=== PATIENT | male | born 1945 | race Caucasian/White ===

== ENCOUNTER → 2017-07-17 11:35 | Outpatient (CLI) | payer OTHER, SELFPAY ==
[2017-07-17 14:30] LABS: Absolute Lymphocyte Count 0.59 X10^3/ul (0.83-4.51); Absolute Neutrophil Count 3.4 X10^3/uL (2.0-7.7); Basophil# 0.05 X10^3/uL; Eosinophil# 0.33 X10^3/uL; Eosinophils% 6.6 % (0-5); Hematocrit 43.1 % (40-54); Hemoglobin 14.9 g/dl (13.0-16.5); Lymphocyte # 0.59 X10^3/ul (4.0); Lymphocyte % 11.8 % (19-41); Mean Corp Hgb Conc 34.6 g/gl (32-36); Mean Corpuscular Hgb 32.6 pg (27.0-32.0); Mean Corpuscular Volume 94.3 fL (80-94); Mean Platelet Vol. 9.1 fl (6.2-12.0); Monocyte# 0.61 X10^3/uL; Monocyte% 12.2 % (0-10); Neutrophil # 3.42 X10^3/uL (2.7-7.7); Platelet Count 168 K/mm3 (150-450); RBC Distribution Width CV 12.3 % (11.6-14.6); RBC Distribution Width SD 41.3 fl (35.1-43.9); Red Blood Count 4.57 M/mm3 (4.6-6.2)
[2017-07-17 14:37] LABS: Differential Indicated SCAN CRITERIA MET; POSITIVE COUNT NO; POSITIVE DIFFERENTIAL YES; POSITIVE MORPHOLOGY NO
[2017-07-17 15:24] LABS: Differential Comment SCANNED; Platelet Estimate ADEQUATE (ADEQ)
== END ==
PROVIDERS: PCP Family Medicine; Visit Provider Radiology Radiation Oncology
DX: C61 Malignant neoplasm of prostate (principal)
CPT/HCPCS: 36415; 85025

== ENCOUNTER → 2017-07-25 09:12 | Outpatient (CLI) | payer OTHER, SELFPAY ==
[2017-07-23 08:34] VITALS: BP 132/75; BMI 24.0
--- NOTE | 2017-07-25 09:21 | RAD_ITS ---
STUDY: AIR-CONTRAST UPPER GI SERIES. REASON FOR EXAM: Male, 72 years old. Dysphagia. FLUOROSCOPY TIME (if supplied): (0:01) minutes/seconds TECHNIQUE: The patient ingested barium. Multiple images of the esophagus stomach and duodenum were obtained. COMPARISON: None. FINDINGS: There is evidence of a mild degree of circumferential narrowing of the distal esophagus at the gastroesophageal junction. No evidence of gastroesophageal reflux. The patient ingested a 12 mm tablet of barium. The tablet is trapped at the gastroesophageal junction. Endoscopic correlation is recommended. The stomach and duodenum are unremarkable. There is no evidence of ulceration. No mass lesion is seen. IMPRESSION: Mild narrowing of the distal esophagus at the gastroesophageal junction with trapping of the 12 mm tablet of barium. Endoscopic correlation is recommended. Electronically Signed: Mason Coon MD at 11:16 EST Tel [phone], Service support , STUDY: X-RAY - ESOPHAGUS (BARIUM SWALLOW) WITH FLUOROSCOPY REASON FOR EXAM: Male, 72 years old. Dysphagia for solids. TECHNIQUE: 10 view(s) of the esophagus were obtained following swallowing of barium. FLUOROSCOPY TIME (if supplied): (0:01) minutes/seconds COMPARISON: None. FINDINGS: There is no demonstrated esophageal foreign body. Mild circumferential narrowing of the distal esophagus at the gastroesophageal junction. The patient ingested a 12 mm tablet of barium. The tablet is trapped at the gastroesophageal junction. Endoscopic correlation is recommended. Normal visualized aortic arch and descending thoracic aorta. Normal visualized pulmonary parenchyma. There are diffuse degenerative changes of the visualized thoracic spine. RAD/Upper GI w/BA Swallow IMPRESSION: Narrowing of the distal esophagus at the gastric esophageal junction with trapping of the 12 mm tablet of barium. Endoscopic correlation is recommended. Electronically Signed: Mason Coon MD at 11:17 EST Tel [phone], Service support ,
== END ==
PROVIDERS: Family Provider Family Medicine; PCP Family Medicine; Visit Provider Surgery
DX: R13.10 Dysphagia, unspecified (principal)
CPT/HCPCS: 74246

== ENCOUNTER 2017-07-30 08:50 | Day surgery (SDC) | payer MEDICARE, SELFPAY ==
[2017-07-23 08:34] VITALS: BP 132/75; BMI 24.0
[2017-07-30] VITALS (8 sets, daily range): BP systolic 81–121; BP diastolic 47–71; PULSE 59–71; RESP 16–18; TEMP 35.7–36.4; O2SAT 95–99; BMI 24.0
--- NOTE | 2017-07-30 | IMM_PTH ---
PATIENT: MARIA A CLEMENT LOC: EN U#:[id number] AGE/SX: 72/M ROOM: RE07/30/[address]: Dr. Hoang Wilcxo MD : 1945 BED: DIS: 07/30/2017 SPEC #: [id number] RECD: 07/31/17 13:34 STATUS: CODY REDenae #: [id number] CAL: 07/30/17 00:[address]: Hoang Wilcox DEPT: IMMUNOHISTOCHEMISTRY RECD BY: Brittany Hdz ENTERED: 07/31/17 13:34 SP TYPE: IMMUNO OTHR DR: Dr. Joaquin Caraballo MD Tissues: B - Stomach, NOS Procedures: H Pylori (initial) PHYSICIAN & INSTITUTION [place] [id number] SPECIMEN INFORMATION: Tissue Source: B ? Antral biopsy Clinical Info: Dysphagia Specimen Number: [id number] CPT code: 53026 METHODOLOGY: Deparaffinized sections of prefer/formalin-fixed tissue or PAP/DQ stained slides are incubated with monoclonal/polyclonal antibodies/oligonucleotide probes. Localization is made via biotin free immunoperoxidase method. Appropriate controls are performed and reacted as expected. Results on target cell population are indicated in the following table: RESULTS: ANTIBODY / CLONE RESULT Block B H Pylori (polyclonal) negative These tests were developed and their performance characteristics determined by [facility]. They may not have been cleared or approved by the [place]. Food and Drug Administration. The FDA has determined that such clearance or approval is not necessary. INTERPRETATION: B. Antral biopsy: Negative for Helicobacter pylori organisms. AM:jorge 08/01/17
--- NOTE | 2017-07-30 10:55 | EGD_PTH ---
PATIENT: MARIA A CLEMENT LOC: EN U#:[id number] AGE/SX: 72/M ROOM: RE07/30/[address]: Dr. Hoang Wilcox MD : 1945 BED: DIS: 07/30/2017 SPEC #: [id number] RECD: 07/30/17 12:42 STATUS: CODY DARIEL #: [id number] CAL: 07/30/17 10:[address]: Hoang Wilcox DEPT: SURGICAL PATHOLOGY RECD BY: Tuan Alaniz ENTERED: 07/30/17 13:55 SP TYPE: EGD BIOPSY REMI DR: Dr. Joaquin Caraballo MD Tissues: A - Duodenum, NOS B - Gastric mucous membrane C - Esophageal mucous membrane Procedures: Surgery Specimen Level IV HEADER OPERATION: EGD PRE-OP DIAGNOSIS: Dysphagia TISSUE SUBMITTED: A ? Duodenal biopsy, B ? Antral biopsy, C ? Distal esophageal biopsy MICROSCOPIC DIAGNOSIS A. Duodenum, biopsy: No significant pathologic change. No evidence of enteritis. B. Gastric antrum, biopsy: Gastritis. C. Distal esophagus, biopsy: Focal changes of reflux. AM:jorge 07/31/17 COMMENT B. The results of immunohistochemistry for Helicobacter pylori will be reported separately ([id number]). MICROSCOPIC DESCRIPTION Slides are reviewed. B. Sections show small collections and groups of plasma cells in the mucosa. Active inflammation is not present. These findings are consistent with mild chronic gastritis. GROSS DESCRIPTION A - Received in fixative is one container labeled with the patient's name and designated duodenal biopsy. The specimen consists of one irregular fragment of light og soft tissue that measures 0.3 x 0.2 x 0.1 cm. The specimen is totally submitted in one cassette. B - Received in fixative is one container labeled with the patient's name and designated antral biopsy. The specimen consists of one irregular fragment of light og soft tissue that measures 0.5 x 0.3 x 0.1 cm. The specimen is totally submitted in one cassette. C - Received in fixative is one container labeled with the patient's name and designated distal esophagus. The specimen consists of two irregular fragments of light og soft tissue that in aggregate measure 0.3 x 0.2 x 0.1 cm. The specimen is totally submitted in one cassette. / AM:jorge 07/30/17 TC:3 CPT: 29023 x3
--- NOTE | 2017-07-30 10:55 | EGD_PTH ---
PATIENT: MARIA A CLEMENT LOC: EN U#:[id number] AGE/SX: 72/M ROOM: RE07/30/[address]: Dr. Hoang Wilcox MD : 1945 BED: DIS: 07/30/2017 SPEC #: [id number] RECD: 07/30/17 12:42 STATUS: CODY DARIEL #: [id number] CAL: 07/30/17 10:[address]: Hoang Wilcox DEPT: SURGICAL PATHOLOGY RECD BY: Tuan Alaniz ENTERED: 07/30/17 13:55 SP TYPE: EGD BIOPSY REMI DR: Dr. Joaquin Caraballo MD Tissues: A - Duodenum, NOS B - Gastric mucous membrane C - Esophageal mucous membrane Procedures: Surgery Specimen Level IV HEADER OPERATION: EGD PRE-OP DIAGNOSIS: Dysphagia TISSUE SUBMITTED: A ? Duodenal biopsy, B ? Antral biopsy, C ? Distal esophageal biopsy FROZEN SECTION DIAGNOSIS B. The results of immunohistochemistry for Helicobacter pylori will be reported separately ([id number]). MICROSCOPIC DIAGNOSIS A. Duodenum, biopsy: No significant pathologic change. No evidence of enteritis. B. Gastric antrum, biopsy: Gastritis. C. Distal esophagus, biopsy: Focal changes of reflux. AM:jorge 07/31/17 COMMENT B. Sections show small collections and groups of plasma cells in the mucosa. Active inflammation is not present. These findings are consistent with mild chronic gastritis. MICROSCOPIC DESCRIPTION Slides are reviewed. GROSS DESCRIPTION A - Received in fixative is one container labeled with the patient's name and designated duodenal biopsy. The specimen consists of one irregular fragment of light og soft tissue that measures 0.3 x 0.2 x 0.1 cm. The specimen is totally submitted in one cassette. B - Received in fixative is one container labeled with the patient's name and designated antral biopsy. The specimen consists of one irregular fragment of light og soft tissue that measures 0.5 x 0.3 x 0.1 cm. The specimen is totally submitted in one cassette. C - Received in fixative is one container labeled with the patient's name and designated distal esophagus. The specimen consists of two irregular fragments of light og soft tissue that in aggregate measure 0.3 x 0.2 x 0.1 cm. The specimen is totally submitted in one cassette. / AM:jorge 07/30/17 TC:3 CPT: 98715 x3
--- NOTE | 2017-07-30 11:12 | PCM.OPRPT ---
Problem List (1) Esophageal dysfunction Status: Acute Report of Operation Date of Procedure: 07/30/17 Pre-Operative Diagnosis: Intermittent episodes of esophageal food intermittent partial obstruction Post-Operative Diagnosis: Small hiatal hernia with minimal esophagitis. Relative narrowing of the e.g. junction. Duodenitis Surgery/Procedure Performed:: Gastroduodenoscopy with duodenal and antral and distal esophageal biopsies with 18 mm hydrostatic distal esophageal e.g. junction dilatation Description of Surgical Findings:: Timeout and informed consent was obtained. 72-year-old gent was taken to the endoscopy suite. His oropharynx anesthetized with Cetacaine. He was placed in left loud skin position. He received throughout the procedure a total of 75 mg Demerol and 3 mg of Versed. She videogastroscope was inserted into the esophageal inlet. Advanced without difficulty. Proximal mid distal esophagus unremarkable. EG junction at 40 cm. Very minimal distal esophagitis noted. There appear to be relative narrowing of the e.g. junction. Scope was advanced in the stomach which otherwise did not appear remarkable. Scope was advanced through the pylorus and the first and second portion the duodenum were inspected. There appeared to be mild inflammatory changes of the duodenum. No ulcerations. No active bleeding. Duodenal biopsy was obtained. The scope was withdrawn to stomach retroflexed the EG junction and cardia inspected. Small hiatal hernia noted. Cardia was not remarkable. The greater and lesser curvatures were not remarkable. Antral biopsy was obtained. Excess fluid and air was aspirated free. The scope was withdrawn to the distal esophagus. A slight tugging on the scope was encountered. I took a biopsy of the distal esophagus. Because of the patient's symptomatology I elected to do balloon dilatation. A hydrostatic balloon was inserted and gradually went from 3 albin to 7 albin bringing the balloon up to 18 mm of pressure. That appeared to go well. Inspection revealed a very slight superficial mucosal tear at the e.g. junction and I elected to place a hemostatic clip there. That was nicely intact. This scope was further withdrawn without additional abnormality. Impression Mild duodenitis. Small hiatal hernia. Snug EG junction seemingly treated successfully with 18 mm hydrostatic dilatation. The patient will be conservatively observed. Barium swallow demonstrated the same finding with a barium tablet hanging at the e.g. junction. The patient's improves and no further investigation were required. The patient continues to have symptoms then would consider esophageal manometry. Cc: Dr. Frederick Wilcox M.D., F.A.C.S. Type of Anesthesia:: IV Sedation
== END 2017-07-30 12:23 | disposition home or self-care (01) ==
LOC: EN 08:52 → AC 08:53
PROVIDERS: Family Provider Family Medicine; PCP Family Medicine; Visit Provider Surgery
PROC: (CPT 43239; principal; 2017-07-30 09:55)
DX: K29.80 Duodenitis without bleeding (principal); R13.10 Dysphagia, unspecified; K44.9 Diaphragmatic hernia without obstruction or gangrene; K29.70 Gastritis, unspecified, without bleeding; E78.5 Hyperlipidemia, unspecified; I10 Essential (primary) hypertension; Z85.46 Personal history of malignant neoplasm of prostate; Z80.0 Family history of malignant neoplasm of digestive organs
CPT/HCPCS: 43239; 43249; 88305; 88342; J7120

== ENCOUNTER → 2017-08-08 09:13 | Outpatient (CLI) | payer MEDICARE, SELFPAY ==
[2017-08-08 12:06] LABS: Absolute Lymphocyte Count 0.53 X10^3/ul (0.83-4.51); Basophil# 0.02 X10^3/uL; Basophil% 0.4 % (0-1); Eosinophil# 0.35 X10^3/uL; Eosinophils% 7.8 % (0-5); Hematocrit 40.7 % (40-54); Hemoglobin 13.7 g/dl (13.0-16.5); Lymphocyte # 0.53 X10^3/ul (4.0); Lymphocyte % 11.8 % (19-41); Mean Corp Hgb Conc 33.7 g/gl (32-36); Mean Corpuscular Hgb 32.3 pg (27.0-32.0); Mean Platelet Vol. 9.2 fl (6.2-12.0); Monocyte# 0.57 X10^3/uL; Monocyte% 12.7 % (0-10); Neutrophil # 2.99 X10^3/uL (2.7-7.7); Neutrophil % 66.6 % (47-70); Platelet Count 202 K/mm3 (150-450); RBC Distribution Width CV 12.8 % (11.6-14.6); RBC Distribution Width SD 43.6 fl (35.1-43.9); Red Blood Count 4.24 M/mm3 (4.6-6.2); White Blood Count 4.5 K/mm3 (4.4-11.0)
[2017-08-08 12:07] LABS: Differential Indicated SCAN CRITERIA MET; POSITIVE COUNT NO; POSITIVE DIFFERENTIAL YES; POSITIVE MORPHOLOGY NO
== END ==
PROVIDERS: Family Provider Family Medicine; PCP Family Medicine; Visit Provider Radiology Radiation Oncology
DX: C61 Malignant neoplasm of prostate (principal)
CPT/HCPCS: 36415; 85025

== ENCOUNTER → 2018-02-24 13:42 | Outpatient (CLI) | payer MEDICARE, SELFPAY ==
[2018-02-24 16:30] LABS: PSA,Total- Diagnostic < 0.01 ng/mL (0.0-4.0)
== END ==
PROVIDERS: Family Provider Family Medicine; PCP Family Medicine; Visit Provider Urology
DX: C61 Malignant neoplasm of prostate (principal)
CPT/HCPCS: 36415; 84153

== ENCOUNTER → 2018-09-01 09:21 | Outpatient (CLI) | payer MEDICARE, SELFPAY ==
[2017-07-30 09:25] VITALS: BMI 24.0
[2018-09-01 11:33] LABS: PSA,Total- Diagnostic 0.21 ng/mL (0.0-4.0)
== END ==
PROVIDERS: Family Provider Family Medicine; PCP Family Medicine; Referring Provider Urology; Visit Provider Urology
DX: C61 Malignant neoplasm of prostate (principal)
CPT/HCPCS: 36415; 84153

== ENCOUNTER → 2019-02-25 08:07 | Outpatient (CLI) | payer MEDICARE, SELFPAY ==
[2017-07-30 09:25] VITALS: BMI 24.0
[2019-02-25 12:15] LABS: Absolute Lymphocyte Count 0.76 X10^3/uL (0.83-4.51); Absolute Neutrophil Count 3.6 X10^3/uL (2.0-7.7); Basophil# 0.05 X10^3/uL; Eosinophil# 0.27 X10^3/uL; Eosinophils% 5.3 % (0-5); Hematocrit 46.1 % (40-54); Hemoglobin 15.1 g/dL (13.0-16.5); Lymphocyte # 0.76 X10^3/ul (4.0); Lymphocyte % 14.9 % (19-41); Mean Corp Hgb Conc 32.8 g/dL (32-36); Mean Corpuscular Hgb 31.7 pg (27.0-32.0); Mean Corpuscular Volume 96.8 fL (80-94); Mean Platelet Vol. 9.5 fl (6.2-12.0); Monocyte# 0.43 X10^3/uL; Monocyte% 8.4 % (0-10); NRBC Flagged by Analyzer 0 % (0-5); Neutrophil # 3.56 X10^3/uL (2.7-7.7); Platelet Count 199 K/mm3 (150-450); RBC Distribution Width CV 12.5 % (11.6-14.6); RBC Distribution Width SD 44.9 fl (35.1-43.9); Red Blood Count 4.76 M/mm3 (4.6-6.2); White Blood Count 5.1 K/mm3 (4.4-11.0)
[2019-02-25 12:54] LABS: Anion Gap 6 (5-15); BUN 21 mg/dL (7-18); BUN/Creat Ratio 21.5 RATIO (10-20); Calcium,Total 8.7 mg/dL (8.5-10.1); Chloride 108 mmol/L (98-107); Cholesterol 135 mg/dL (200); Creatinine, Serum 0.98 mg/dL (0.70-1.30); EST Glomerular Filtration Rate 79 mL/min (>60); Est Glom Filt Rate - Afr Amer 96 mL/min (>60); Glucose 105 mg/dL (74-106); High Density Lipoprotein 55 mg/dL; Sodium Level 139 mmol/L (136-145); Triglycerides 77 mg/dL; Very Low Density Lipoprotein 15 mg/dL (5-40)
== END ==
PROVIDERS: Family Provider Family Medicine; PCP Family Medicine; Visit Provider Family Medicine
DX: I10 Essential (primary) hypertension (principal); E78.5 Hyperlipidemia, unspecified
CPT/HCPCS: 36415; 80048; 80061; 84443; 85025

== ENCOUNTER → 2019-09-11 10:12 | Outpatient (CLI) | payer MEDICARE, SELFPAY ==
[2017-07-30 09:25] VITALS: BMI 24.0
[2019-09-11 12:21] LABS: Absolute Lymphocyte Count 0.72 X10^3/uL (0.83-4.51); Absolute Neutrophil Count 3.1 X10^3/uL (2.0-7.7); Basophil# 0.05 X10^3/uL; Basophil% 1.1 % (0-1); Eosinophil# 0.21 X10^3/uL; Eosinophils% 4.6 % (0-5); Hematocrit 44.9 % (40-54); Hemoglobin 15.1 g/dL (13.0-16.5); Lymphocyte # 0.72 X10^3/ul (4.0); Lymphocyte % 15.9 % (19-41); Mean Corp Hgb Conc 33.6 g/dL (32-36); Mean Corpuscular Hgb 32.8 pg (27.0-32.0); Mean Corpuscular Volume 97.4 fL (80-94); Mean Platelet Vol. 9.3 fl (6.2-12.0); Monocyte# 0.47 X10^3/uL; Monocyte% 10.4 % (0-10); NRBC Flagged by Analyzer 0 % (0-5); Neutrophil # 3.06 X10^3/uL (2.7-7.7); Neutrophil % 67.3 % (47-70); Platelet Count 193 K/mm3 (150-450); RBC Distribution Width CV 12.3 % (11.6-14.6); RBC Distribution Width SD 44.3 fl (35.1-43.9); Red Blood Count 4.61 M/mm3 (4.6-6.2); White Blood Count 4.5 K/mm3 (4.4-11.0)
[2019-09-11 12:35] LABS: ALB/GLOB Ratio 1.1 RATIO (0.9-2.4); AST(SGOT) 37 U/L (15-37); Alanine Aminotransfer ALT/SGPT 37 U/L (16-61); Albumin, Serum 3.9 g/dL (3.2-5.0); Alkaline Phosphatase 95 U/L (45-117); Anion Gap 8 (5-15); BUN 20 mg/dL (7-18); BUN/Creat Ratio 20.8 RATIO (10-20); Calcium,Total 8.7 mg/dL (8.5-10.1); Chloride 102 mmol/L (98-107); Creatinine, Serum 0.96 mg/dL (0.70-1.30); EST Glomerular Filtration Rate 81 mL/min (>60); Est Glom Filt Rate - Afr Amer 98 mL/min (>60); Globulin 3.5 g/dL (2.2-4.2); Glucose 99 mg/dL (74-106); Potassium 3.8 mmol/L (3.5-5.1); Protein, Total 7.4 g/dL (6.4-8.2); Sodium Level 138 mmol/L (136-145)
== END ==
PROVIDERS: PCP Family Medicine; Visit Provider Family Medicine
DX: I10 Essential (primary) hypertension (principal); C61 Malignant neoplasm of prostate; Z12.5 Encounter for screening for malignant neoplasm of prostate
CPT/HCPCS: 36415; 80053; 84153; 85025; G0103

== ENCOUNTER → 2022-03-19 | Outpatient (CLI) | payer MEDICARE, SELFPAY ==
[2022-03-19 10:11] LABS: Absolute Lymphocyte Count 0.84 X10^3/uL (0.83-4.51); Absolute Neutrophil Count 3.7 X10^3/uL (2.0-7.7); Basophil# 0.07 X10^3/uL; Basophil% 1.3 % (0-1); Eosinophil# 0.19 X10^3/uL; Eosinophils% 3.6 % (0-5); Hematocrit 44.9 % (40-54); Hemoglobin 15.6 g/dL (13.0-16.5); Lymphocyte # 0.84 X10^3/ul (0.83-4.51); Mean Corp Hgb Conc 34.7 g/dL (32-36); Mean Corpuscular Hgb 33.3 pg (27.0-32.0); Mean Corpuscular Volume 95.7 fL (80-94); Mean Platelet Vol. 8.9 fl (6.2-12.0); Monocyte# 0.47 X10^3/uL; NRBC Flagged by Analyzer 0 % (0-5); Neutrophil # 3.66 X10^3/uL (2.7-7.7); Neutrophil % 69.9 % (47-70); Platelet Count 216 K/mm3 (150-450); RBC Distribution Width CV 12.2 % (11.6-14.6); RBC Distribution Width SD 43.1 fl (35.1-43.9); Red Blood Count 4.69 M/mm3 (4.6-6.2); White Blood Count 5.2 K/mm3 (4.4-11.0)
[2022-03-19 11:02] LABS: ALB/GLOB Ratio 0.9 RATIO (0.9-2.4); AST(SGOT) 17 U/L (15-37); Alanine Aminotransfer ALT/SGPT 29 U/L (16-61); Albumin, Serum 3.6 g/dL (3.2-5.0); Alkaline Phosphatase 90 U/L (45-117); Anion Gap 9 (5-15); BUN 19 mg/dL (7-18); BUN/Creat Ratio 19.6 RATIO (10-20); Calcium,Total 9.1 mg/dL (8.5-10.1); Chloride 104 mmol/L (98-107); Cholesterol 136 mg/dL (200); Creatinine, Serum 0.97 mg/dL (0.70-1.30); EST Glomerular Filtration Rate 80 mL/min (>60); Est Glom Filt Rate - Afr Amer 96 mL/min (>60); Globulin 3.8 g/dL (2.2-4.2); Glucose 93 mg/dL (74-106); High Density Lipoprotein 56 mg/dL; Potassium 3.6 mmol/L (3.5-5.1); Protein, Total 7.4 g/dL (6.4-8.2); Sodium Level 140 mmol/L (136-145); Thyroid Stim Hormone (TSH) 2.01 uIU/mL (0.358-3.74); Triglycerides 68 mg/dL; Very Low Density Lipoprotein 14 mg/dL (5-40)
== END | disposition home or self-care (01) ==
LOC: MTLAB 07:05
PROVIDERS: PCP Family Medicine; Visit Provider Family Medicine
DX: I10 Essential (primary) hypertension (principal); E78.5 Hyperlipidemia, unspecified
CPT/HCPCS: 36415; 80053; 80061; 84443; 85025

== ENCOUNTER → 2022-05-21 | Outpatient (CLI) | payer MEDICARE, SELFPAY ==
[2022-05-21 15:55] LABS: PSA,Total- Diagnostic 0.24 ng/mL (0.0-4.0)
== END | disposition home or self-care (01) ==
LOC: LAB 13:49
PROVIDERS: PCP Family Medicine; Referring Provider Registered Nurse; Visit Provider Registered Nurse
DX: C61 Malignant neoplasm of prostate (principal)
CPT/HCPCS: 36415; 84153

== ENCOUNTER → 2024-04-09 | Outpatient (CLI) | payer MEDICARE, SELFPAY ==
[2024-04-09 17:49] LABS: Absolute Lymphocyte Count 0.97 X10^3/uL (0.83-4.51); Absolute Neutrophil Count 4.4 X10^3/uL (2.0-7.7); Basophil# 0.08 X10^3/uL; Basophil% 1.3 % (0-1); Eosinophils% 3.2 % (0-5); Hematocrit 44.8 % (40-54); Hemoglobin 14.8 g/dL (13.0-16.5); Lymphocyte # 0.97 X10^3/ul (0.83-4.51); Lymphocyte % 15.6 % (19-41); Mean Corpuscular Hgb 32.2 pg (27.0-32.0); Mean Corpuscular Volume 97.6 fL (80-94); Mean Platelet Vol. 9.3 fl (6.2-12.0); Monocyte# 0.57 X10^3/uL; Monocyte% 9.2 % (0-10); NRBC Flagged by Analyzer 0 % (0-5); Neutrophil # 4.36 X10^3/uL (2.7-7.7); Neutrophil % 70.2 % (47-70); Platelet Count 248 K/mm3 (150-450); RBC Distribution Width CV 12.6 % (11.6-14.6); Red Blood Count 4.59 M/mm3 (4.6-6.2); White Blood Count 6.2 K/mm3 (4.4-11.0)
[2024-04-09 18:22] LABS: ALB/GLOB Ratio 1.1 RATIO (0.9-2.4); AST(SGOT) 24 U/L (15-37); Alanine Aminotransfer ALT/SGPT 34 U/L (16-61); Albumin, Serum 3.9 g/dL (3.2-5.0); Alkaline Phosphatase 109 U/L (45-117); Anion Gap 7 (5-15); BUN 21 mg/dL (7-18); BUN/Creat Ratio 21.3 RATIO (10-20); Calcium,Total 9.2 mg/dL (8.5-10.1); Chloride 97 mmol/L (98-107); Cholesterol 131 mg/dL (200); Creatinine, Serum 0.99 mg/dL (0.70-1.30); EST Glomerular Filtration Rate 77 mL/min (>60); Est Glom Filt Rate - Afr Amer 94 mL/min (>60); Globulin 3.4 g/dL (2.2-4.2); Glucose 88 mg/dL (74-106); High Density Lipoprotein 57 mg/dL; PSA,Total - Annual Screen 0.22 ng/mL (0.00-4.00); Potassium 4.3 mmol/L (3.5-5.1); Protein, Total 7.3 g/dL (6.4-8.2); Sodium Level 133 mmol/L (136-145); Triglycerides 149 mg/dL; Very Low Density Lipoprotein 30 mg/dL (5-40)
== END | disposition home or self-care (01) ==
LOC: BFHLAB 14:12
PROVIDERS: PCP Family Medicine; Referring Provider Family Medicine; Visit Provider Family Medicine
DX: I10 Essential (primary) hypertension (principal); E78.5 Hyperlipidemia, unspecified; Z85.46 Personal history of malignant neoplasm of prostate; Z12.5 Encounter for screening for malignant neoplasm of prostate
CPT/HCPCS: 36415; 80053; 80061; 84153; 85025; G0103

== ENCOUNTER → 2025-04-13 | Outpatient (CLI) | payer MEDICARE, SELFPAY ==
[2025-04-13 12:32] LABS: Hematocrit 43.8 % (40-54); Hemoglobin 14.7 g/dL (13.0-16.5); Immature Granulocytes Count 0.040 X10^3/uL (0.0-0.0); Mean Corp Hgb Conc 33.6 g/dL (32-36); Mean Corpuscular Volume 95.6 fL (80-94); Mean Platelet Vol. 9.2 fl (6.2-12.0); NRBC Flagged by Analyzer 0 % (0-5); Platelet Count 271 K/mm3 (150-450); RBC Distribution Width CV 12.0 % (11.6-14.6); RBC Distribution Width SD 41.6 fl (35.1-43.9); Red Blood Count 4.58 M/mm3 (4.6-6.2); White Blood Count 8.4 K/mm3 (4.4-11.0)
[2025-04-13 13:11] LABS: AST(SGOT) 22 U/L (<=37); Alanine Aminotransfer ALT/SGPT 18 U/L (<=46); Albumin, Serum 4.1 g/dL (3.4-4.8); Alkaline Phosphatase 110 U/L (40-129); Anion Gap 12 (5-15); BUN 11 mg/dL (4-19); BUN/Creat Ratio 14.3 RATIO (10-20); Calcium,Total 9.4 mg/dL (7.6-11.0); Carbon Dioxide 24.2 mmol/L (21.0-32.0); Chloride 94 mmol/L (98-108); Cholesterol 109 mg/dL (<=200); Globulin 3.5 g/dL (2.2-4.2); Glucose 88 mg/dL (70-99); Low Density Lipoprotein Calc. 49 mg/dL; PSA,Total- Diagnostic 0.16 ng/mL (0.00-4.00); Potassium 4.5 mmol/L (3.3-5.1); Triglycerides 81 mg/dL; Very Low Density Lipoprotein 16 mg/dL (5-40); cholesterol:hdl ratio screen 2.52
== END | disposition home or self-care (01) ==
LOC: MTLAB 09:45
PROVIDERS: PCP Family Medicine; Referring Provider Family Medicine; Visit Provider Family Medicine
DX: I10 Essential (primary) hypertension (principal); E78.5 Hyperlipidemia, unspecified; Z85.46 Personal history of malignant neoplasm of prostate
CPT/HCPCS: 36415; 80053; 80061; 84153; 85025